=== PATIENT | female | born 1950 | race Two or more races ===

== ENCOUNTER 2024-12-26 10:08 | Emergency (ER) | payer MEDICARE, MEDICAID, SELFPAY ==
[2024-12-26 10:09] VITALS: BMI 39.4
[2024-12-26 10:20] VITALS: BP 138/65; PULSE 67; RESP 20; TEMP 36.7; O2SAT 98; BMI 34.0
--- NOTE | 2024-12-26 10:21 | XR_ITS ---
Examination: Duplex scan of the lower extremity, unilateral left Date and time of exam: December 26, 2024 1139 hours INDICATIONS: Left leg pain beginning 3 days ago Technique: Duplex scan of the extremity veins using B-mode/grayscale imaging and Doppler spectral analysis and color flow Attention is directed to internal echogenicity, compression and augmentation involving these veins, color flow assessment, spectral analysis Findings: Major deep venous structures in the extremity demonstrate normal course and caliber. There is no evidence of deep vein thrombosis. Normal color flow and spectral analysis Impression: Negative for DVT..
--- NOTE | 2024-12-26 10:22 | PD.EDLOWEX ---
Lower Extremity Injury RME/HPI General Chief Complaint: Extremity Injury, Lower Stated Complaint: SENT BY PMD TO R/O DVT TO LLE Time Seen by Provider: 12/26/24 10:13 Source: patient Arrival date/time: 12/26/24 10:08 74-year-old female with a history of hyperlipidemia, hypertension presents to the emergency room with a chief complaint of pain to her left lower extremity. Patient states the pain is mostly to the bone and denies any swelling warmth or pain to the muscle. Mode of arrival: ambulatory Limitations: no limitations Related Data Home Medications ?Medication ?Instructions ?Recorded ?Confirmed aspirin [Adult Low Dose Aspirin] PO 09/25/19 10/24/23 atorvastatin [Lipitor] PO 09/25/19 10/24/23 losartan PO 09/25/19 10/24/23 metoprolol tartrate PO 09/25/19 10/24/23 Previous Rx's ?Medication ?Instructions ?Recorded pantoprazole 20 mg tablet,delayed 20 mg PO QDAY #30 tabs 05/21/22 release (Protonix) meloxicam 7.5 mg tablet 7.5 mg PO QDAY #45 tabs 10/24/23 Review of Systems Review of Systems Systems Reviewed: All systems reviewed, normal except as documented Constitutional Constitutional: Reports system reviewed and no additional complaints, except as documented, Denies fatigue, Denies fever(s), Denies headache(s) and Denies weakness Eyes Eyes: Reports system reviewed and no additional complaints, except as documented, Denies blurry vision and Denies change in vision ENT Ears, Nose, Mouth, and Throat: Reports system reviewed and no additional complaints, except as documented, Denies otalgia, Denies headache(s), Denies nasal congestion, Denies throat swelling and Denies vertigo Cardiovascular Cardiovascular: Reports system reviewed and no additional complaints, except as documented, Denies chest pain, Denies dyspnea and Denies dyspnea on exertion Respiratory Respiratory: Reports system reviewed and no additional complaints, except as documented, Denies chest congestion, Denies cough, Denies dyspnea, Denies dyspnea on exertion and Denies wheezing Gastrointestinal Gastrointestinal: Reports system reviewed and no additional complaints, except as documented, Denies abdominal pain, Denies cramping, Denies nausea and Denies vomiting Genitourinary Genitourinary: Reports system reviewed and no additional complaints, except as documented Musculoskeletal Musculoskeletal: Reports system reviewed and no additional complaints, except as documented, Reports arthralgias, Denies back pain, Denies joint swelling and Denies limited range of motion Integumentary/Breasts Skin/Breast: Reports system reviewed and no additional complaints, except as documented and Denies wounds Neurologic Neurologic: Reports system reviewed and no additional complaints, except as documented, Denies confusion, Denies headache(s), Denies lack of coordination, Denies vertigo and Denies weakness Psychiatric Psychiatric: Reports system reviewed and no additional complaints, except as documented, Denies anxiety, Denies confusion, Denies depression, Denies paranoia, Denies suicidal ideation and Denies tactile hallucinations Endocrine Endocrine: Reports system reviewed and no additional complaints, except as documented and Denies fatigue Hematologic/Lymphatic Hematologic/Lymphatic: Reports system reviewed and no additional complaints, except as documented and Denies lymphadenopathy Allergic/Immunologic Allergic/Immunologic: Reports system reviewed and no additional complaints, except as documented, Denies throat swelling, Denies urticaria and Denies wheezing Past Medical History Past Medical History CARDIAC: Positive Cardiac Disorders (HTN); Negative Congestive Heart Failure RESPIRATORY: Negative Chronic Obstructive Pulmonary Disease (COPD) or Asthma GENITOURINARY: Negative Renal Disease ENDOCRINE: Negative Diabetes Mellitus Type 1 or Diabetes Mellitus Type 2 HEMATOLOGIC: Negative Sickle Cell Disease Social History SMOKING STATUS: Never smoker ED Exam General Limitations: Present no limitations General appearance: Present alert and in no apparent distress Head Head exam: Present atraumatic Eye Eye exam: Present normal appearance, PERRL and EOMI ENT ENT exam: Present normal exam, normal oropharynx and mucous membranes moist Neck Neck exam: Present normal inspection, full ROM and trachea midline Chest Chest inspection: Present normal inspection and symmetric chest wall rise Respiratory Respiratory exam: Present normal lung sounds bilaterally Cardiovascular Cardiovascular exam: Present regular rate, normal rhythm and normal heart sounds Abdominal Exam Abdominal exam: Present soft and normal bowel sounds Extremities Exam Extremities exam: Present normal inspection and full ROM Expanded Lower Extremity Exam Hip/Pelvis exam: Present normal inspection Upper leg exam: Present normal inspection; Absent tenderness or swelling Knee exam: Present normal inspection Lower leg exam: Present full ROM and tenderness; Absent swelling, erythema or Homans' sign Ankle exam: Present normal inspection Foot/toe exam: Present normal inspection Neurovascular/Tendon exam: Present normal capillary refill Gait: observed and normal Back Exam Back exam: Present normal inspection and full ROM Neurological Exam Neurological exam: Present alert, oriented X3 and CN II-XII intact Psychiatric Psychiatric exam: Present normal affect and normal mood Skin Skin exam: Present warm, dry, intact and normal color Course Quality Measures none Orders Category Date Time Status US venous doppler LE LT Stat Exams 12/26/24 10:21 Completed Vital Signs Vital signs: Vital Signs Temperature 98.0 F 12/26/24 10:20 Pulse Rate 67 12/26/24 10:20 Respiratory Rate 20 12/26/24 10:20 Blood Pressure 138/65 H 12/26/24 10:20 Pulse Oximetry (%) 98 12/26/24 10:20 Oxygen Delivery Method Room Air 12/26/24 10:20 Extremity Injury, Lower MDM Narrative MDM Narrative:: 74-year-old female with a history of hyperlipidemia, hypertension presents to the emergency room with a chief complaint of pain to her left lower extremity. Patient states the pain is mostly to the bone and denies any swelling warmth or pain to the muscle. Patient is hemodynamically stable. There is no fever tachycardia or tachypnea Physical examination shows clear bilateral lung sounds. There is no signs of any respiratory distress. Patient denies any other complaints besides pain to her left lower extremity. During my evaluation the patient does not have any swelling erythema or pain to the upper leg above the knee. The patient does not have any pain swelling or erythema to the left calf. There is a negative Homans' sign. Patient states most of her pain is to the bone. Ultrasound Doppler was completed and was negative for any DVT Patient was discharged and educated to follow-up with primary care provider in the next 24 to 48 hours and return to the emergency room for any evidence of worsening signs or symptoms Patient data External records reviewed:: [facility] previous records Clinical information provided by:: patient Social determinants that could affect healthcare access:: none Patient has the following chronic illnesses:: Hypertension, hyperlipidemia How is presenting disease/condition affected by chronic disease/condition?: uneffected by Evaluation data The following diagnostics were reviewed and interpreted by me:: lab results and radiology exam(s) Lab and/or radiology exams considered but not ordered:: Labs and radiology exams considered and ordered Interpretation Summary: Ultrasound Doppler-Findings: Major deep venous structures in the extremity demonstrate normal course and caliber. There is no evidence of deep vein thrombosis. Normal color flow and spectral analysis Impression: Negative for DVT.. Medications / Prescriptions Medications or Prescriptions considered but not ordered:: No medication given Medication administrations:: No medication given Consultations Consultation(s) initiated? (list below): No Diagnosis Extremity Injury, Lower Differential Diagnosis: other (Arthritis of the left lower extremity/DVT/cellulitis) Most likely diagnosis given after review of the tests above:: Arthritis of the lower extremity Admission Indicated Admission indicated?: not indicated Admission Request Was there a request for admission?: No Disposition Plan Disposition Plan: Discharge Discharge Attestation Discharge Attestation: The patient and all family members were given an opportunity to ask questions and understood the discharge instructions. Discharge instructions specifically effects, indications for sooner follow up or return to the emergency department, and the expected course of current diagnosis. Patient condition: Stable Discharge Plan Plan Patient Disposition: HOME (Self Care) Discharge Disposition comment: Stable Prescriptions/Referrals Prescriptions/Med Rec: No Action meloxicam 7.5 mg tablet 7.5 mg PO QDAY Qty: 45 3RF losartan PO metoprolol tartrate PO atorvastatin [Lipitor] PO aspirin [Adult Low Dose Aspirin] PO pantoprazole [Protonix] 20 mg tablet,delayed release (DR/EC) 20 mg PO QDAY Qty: 30 1RF Referrals: Jimmy Cole [Primary Care Provider] - In 1 week Problem List Clinical Impression: Arthritis of leg, left Patient/Caregiver Discharge Instructions Additional Instructions: Por favor, consulte con renteria m?dico de cabecera en las pr?ximas 24 a 48 horas. Se realiz? la ecograf?a y el resultado fue negativo para TVP o co?gulos. Si observa cualquier signo de empeoramiento de los signos o s?ntomas, acuda inmediatamente a urgencias. Print Language: Portuguese Stand Alone Forms: Giselle Award Info., Patient Portal Info Letter PA/STRAP CUTTING MACHINE OPERATOR Supervising Physician PA/STRAP CUTTING MACHINE OPERATOR Supervising Physician: Dr. Finn
== END 2024-12-26 12:03 | disposition home or self-care (01) ==
PROVIDERS: Emergency Provider Family Medicine; PCP Physician Assistant
DX: M19.09 Primary osteoarthritis, other specified site (principal); E78.5 Hyperlipidemia, unspecified; I10 Essential (primary) hypertension
CPT/HCPCS: 93971; 99284

== ENCOUNTER → 2025-04-02 | Outpatient (CLI) | payer MEDICARE, MEDICAID, SELFPAY ==
--- NOTE | 2025-04-02 10:47 | XR_ITS ---
Examination: Knee bilateral, 6 views Technique: Knee AP, lateral, oblique each knee total 6 views Date and time of exam: March,, 1126 hours INDICATIONS: Bilateral knee pain several years. FINDINGS: Bilateral moderate to advanced tricompartment osteoarthritis, most severe lateral joint spaces No fractures or dislocations. 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
--- NOTE | 2025-04-02 11:15 | XR_ITS ---
Examination: Screening digital mammography, bilateral Computer aided detection 3-D breast Tomosynthesis, bilateral Date and time of exam: April 02, 2025, 1047 hours, compared to mammograms dating to April 23, 2019 Indication: Screening Technique: Nonmagnified MLO, CC views of the breasts to been obtained, reconstructed from 3-D Tomosynthesis images. R2 computer aided detection program utilized for evaluation of suspicious masses and/or abnormal calcifications. 3-D Tomosynthesis images obtained. Findings: Scattered areas of fibroglandular density. Benign calcifications. 8 mm focal asymmetry outer right breast cc view posterior depth, 10 cm from the nipple IMPRESSION: BI-RADS Category 0: Incomplete: Need additional imaging evaluation Recommend follow-up spot tomographic views upper outer quadrant right breast to assess focal asymmetry, 8 mm outer right breast on the current spot cc view as well as right breast sonography to complete the work-up
== END | disposition home or self-care (01) ==
PROVIDERS: Referring Provider Internal Medicine; Visit Provider Internal Medicine
DX: Z12.31 Encounter for screening mammogram for malignant neoplasm of breast (principal); R92.8 Other abnormal and inconclusive findings on diagnostic imaging of breast; N64.89 Other specified disorders of breast; M17.0 Bilateral primary osteoarthritis of knee; M25.462 Effusion, left knee; M25.461 Effusion, right knee
CPT/HCPCS: 73562; 77063; 77067

== ENCOUNTER → 2025-04-23 | Outpatient (CLI) | payer MEDICAID, OTHER, SELFPAY ==
--- NOTE | 2025-04-23 09:25 | XR_ITS ---
Examination: Venous duplex lower extremity sonogram, bilateral. Date and time of exam: April 23, 2025, 0959 hours INDICATIONS: Bilateral leg swelling beginning 2 days ago. Technique: Multiple sonographic images of the deep venous system have been obtained. B-mode/2-D grayscale imaging of vascular structures and Doppler spectral analysis (waveforms) and color performed Both legs are examined. Findings: Deep venous systems do not demonstrate abnormal echogenicity. All visualized deep veins exhibit compressibility. All visualized deep veins exhibit augmentation. Impression: Negative for deep vein thrombosis
== END | disposition home or self-care (01) ==
PROVIDERS: PCP Family Medicine; Referring Provider Family Medicine; Visit Provider Family Medicine
DX: I83.893 Varicose veins of bilateral lower extremities with other complications (principal)
CPT/HCPCS: 93970